=== PATIENT | female | born 1945 | race Caucasian/White ===

== ENCOUNTER 2018-07-01 17:09 | Inpatient (IN) ==
--- NOTE | 2018-07-01 17:14 | Emergency Department Note ---
Disposition Clinical Impression: Cerebrovascular accident Disposition: Admitted As Inpatient Condition: Undetermined General Adult HPI - General Stated complaint: CVA Time Seen by Provider: 07/01/18 17:13 - Related Data Home Medications Medication Instructions Recorded Confirmed Clopidogrel 75 mg PO DAILY 05/19/15 07/01/18 GlipiZIDE 10 mg PO BID 05/19/15 07/01/18 Metformin 500 mg PO BIDWM 05/19/15 07/01/18 Simvastatin 20 mg PO DAILY 05/19/15 07/01/18 ALPRAZolam [Xanax 0.5 MG Tablet] 0.5 mg PO TID PRN 07/01/18 07/01/18 Budesonide/Formoterol 160/4.5 2 puff IH BIDR 07/01/18 07/01/18 [Symbicort 160/4.5] Cetirizine HCl [All Day Allergy] 10 mg PO DAILY 07/01/18 07/01/18 Citalopram [CeleXA] 40 mg PO BID 07/01/18 07/01/18 Fluticasone Propionate Nasal 50 mcg NS DAILY 07/01/18 07/01/18 [Flonase] Gabapentin [Neurontin] 600 mg PO QID 07/01/18 07/01/18 Hyoscyamine SL [Levsin SL] 0.125 mg SL TID 07/01/18 07/01/18 L. Acidophilus/Pectin, Ch[place] 1 each PO DAILY 07/01/18 07/01/18 [Acidophilus Probiotic Capsule] Lansoprazole [Prevacid] 30 mg PO DAILY 07/01/18 07/01/18 Levothyroxine Sodium [Levoxyl] 25 mcg PO DAILY 07/01/18 07/01/18 Metoprolol Succinate [Kapspargo 50 mg PO DAILY 07/01/18 07/01/18 Sprinkle] Montelukast [Singulair] 10 mg PO HS 07/01/18 07/01/18 Oxycodone HCl/Acetaminophen 1 each PO Q4HR PRN 07/01/18 07/01/18 [Percocet 7.5-325 mg Tablet] Pantoprazole Sodium [Protonix] 40 mg PO DAILY 07/01/18 07/01/18 Paroxetine HCl [Paxil] 20 mg PO DAILY 07/01/18 07/01/18 Trazodone HCl 150 mg PO HS 07/01/18 07/01/18 Previous Rx's Medication Instructions Recorded Loratadine [Claritin] 10 mg PO DAILY #30 tablet 02/19/16 Allergies Allergy/AdvReac Type Severity Reaction Status Date / Time bupropion [From Wellbutrin] Allergy Dizziness Verified 07/01/18 18:16 hydrocodone Allergy Rash Verified 07/01/18 18:16 meperidine Allergy Rash Verified 07/01/18 18:16 morphine Allergy Abdominal Verified 05/19/15 18:37 Pain propoxyphene Allergy Hives Verified 05/19/15 18:37 [From Darvocet-N] Sulfa (Sulfonamide Allergy Hives Verified 05/19/15 18:37 Antibiotics) acetaminophen [From Vicodin] AdvReac Vomiting Verified 07/01/18 18:16 cephalexin AdvReac Gastrointestinal Verified 07/01/18 18:16 Upset Past Medical History - Past Medical History Medical history: Reports: non-contributory Surgical history: Reports: cholecystectomy, hysterectomy Psychiatric history: Reports: no psych history - Social History Smoking Status: Never smoker Smokeless Tobacco Status: No Alcohol use: Reports: none Drug use: Reports: none Course Vital Signs Temperature 98.2 F 07/01/18 17:15 Pulse Rate 97 07/01/18 17:15 Respiratory Rate 20 07/01/18 17:15 Blood Pressure 149/114 07/01/18 17:15 O2 Sat by Pulse Oximetry 97 07/01/18 17:15 Temperature 98.2 F 07/01/18 17:39 Pulse Rate 64 07/01/18 19:40 Respiratory Rate 18 07/01/18 19:40 Blood Pressure 162/67 07/01/18 19:40 O2 Sat by Pulse Oximetry 98 07/01/18 18:58 Oxygen Delivery Oxygen Delivery Room Air Medical Decision Making - Lab Data Result diagrams: 07/01/18 17:13 07/01/18 17:13 Lab Results 07/01/18 07/01/18 07/01/18 Range/Units 17:13 17:13 17:13 WBC 9.5 (4.3-11.1) K/mcL RBC 4.32 (3.82-4.97) M/mcL Hgb 12.5 (11.5-15.4) g/dL Hct 38.0 (35.3-44.9) % MCV 88.0 (83.0-100.0) fL MCH 28.9 (28.0-33.3) pg MCHC 32.9 (31.6-35.5) g/dL RDW 12.1 (11.5-14.5) % Plt Count 193 (140-400) K/mcL MPV 11.0 (9.4-12.4) fL PT 11.9 (9.4-12.1) Seconds INR 1.1 APTT 33.9 (26.0-36.0) Seconds Sodium 138 (136-145) mEq/L Potassium 3.7 (3.5-5.1) mEq/L Chloride 104 (98-107) mEq/L Carbon Dioxide 23 (23-29) mEq/L BUN 21 (8-23) mg/dL Creatinine 1.03 (0.60-1.20) mg/dL Est GFR ( Amer) > 60 (> 60) Est GFR (Non-Af Amer) 53 L (> 60) BUN/Creatinine Ratio 20 (6-26) Glucose 181 H (70-105) mg/dL Calculated Osmolality 294 (280-300) Calcium 10.6 H (8.6-10.3) mg/dL Troponin I < 0.03 (< 0.04) ng/mL Attestation Statement - Attestation Attestation: I examined this patient and my medical decision-making was reviewed with the Resident Physician. I agree with the documented findings, disposition and treatment plan as described except to the extent set forth below. [id number] time provided Patient arrives with facial droop. Symptoms started at noon which is 5 hours prior to arrival. On exam she has right-sided facial droop, inability to keep her right eyelid held tightly shut against resistance, and inability to further the right side of her forehead. I favor a seventh cranial nerve palsy over a central cause of her symptoms. Despite this a stroke alert was activated as the patient does have some subjective symptoms involving her left upper extremity Patient seen at 17:12 - 2 mins after ED registration
--- NOTE | 2018-07-01 17:18 | Emergency Department Note ---
Disposition Clinical Impression: Cerebrovascular accident Qualifiers: CVA mechanism: unspecified Qualified Code(s): I63.9 - Cerebral infarction, unspecified Disposition: Admitted As Inpatient Condition: Undetermined Referrals: Stanford Valero [Primary Care Provider] - Forms: ED Satisfaction Letter Time of Disposition: 18:52 Neuro HPI - General Chief Complaint: ED Neuro Symptoms/Deficit Stated Complaint: CVA Time Seen by Provider: 07/01/18 17:13 Source: patient Mode of arrival: private vehicle Limitations: no limitations Nursing Notes Reviewed: Yes Vital Signs Reviewed: Yes - History of Present Illness HPI Narrative: 72 year old female with history of TIA arrives with complaint of right facial droop, dyspnea and feeling ill. The patient states the facial droop started at noon, 5 hours prior to arrival. The patient states though however she is not feeling feeling well over the course of the past 8 hours. The patient arrives to the emergency department feeling very short of breath as well. The patient has obvious facial droop on the right which does include partial upper part of the face consistent with a cranial nerve VII palsy but the patient has deviation of the tongue to the left on evaluation as well as ataxia on physical exam and decreased sensation of upper extremities. Patient admits to previous histories of TIA is currently on Plavix for this. He states he is not taken her medicines for the past couple days. She denies any other traumatic injury any other complaints at this time. - Related Data Home Medications: Home Medications Medication Instructions Recorded Confirmed Clopidogrel 75 mg PO DAILY 05/19/15 07/01/18 GlipiZIDE 10 mg PO BID 05/19/15 07/01/18 Metformin 500 mg PO BIDWM 05/19/15 07/01/18 Simvastatin 20 mg PO DAILY 05/19/15 07/01/18 ALPRAZolam [Xanax 0.5 MG Tablet] 0.5 mg PO TID PRN 07/01/18 07/01/18 Citalopram [CeleXA] 40 mg PO BID 07/01/18 07/01/18 Gabapentin [Neurontin] 600 mg PO QID 07/01/18 07/01/18 Hyoscyamine SL [Levsin SL] 0.125 mg SL TID 07/01/18 07/01/18 L. Acidophilus/Pectin, Martin 1 each PO DAILY 07/01/18 07/01/18 [Acidophilus Probiotic Capsule] Oxycodone HCl/Acetaminophen 1 each PO Q4HR PRN 07/01/18 07/01/18 [Percocet 7.5-325 mg Tablet] Previous Rx's Medication Instructions Recorded Loratadine [Claritin] 10 mg PO DAILY #30 tablet 02/19/16 Allergies/Adverse Reactions: Allergies Allergy/AdvReac Type Severity Reaction Status Date / Time bupropion [From Wellbutrin] Allergy Dizziness Verified 07/01/18 18:16 hydrocodone Allergy Rash Verified 07/01/18 18:16 meperidine Allergy Rash Verified 07/01/18 18:16 morphine Allergy Abdominal Verified 05/19/15 18:37 Pain propoxyphene Allergy Hives Verified 05/19/15 18:37 [From Darvocet-N] Sulfa (Sulfonamide Allergy Hives Verified 05/19/15 18:37 Antibiotics) acetaminophen [From Vicodin] AdvReac Vomiting Verified 07/01/18 18:16 cephalexin AdvReac Gastrointestinal Verified 07/01/18 18:16 Upset All systems ED: reviewed and negative except as stated. Constitutional: Reports: weakness. Denies: fever, chills Eyes: Denies: eye discharge, vision change ENT ED: Denies: throat pain, dysphagia Cardiovascular: Denies: chest pain Respiratory: Reports: dyspnea. Denies: cough, sputum production Gastrointestinal: Denies: abdominal pain, nausea, vomiting Genitourinary: Denies: urgency, dysuria Musculoskeletal: Denies: back pain, neck pain Integumentary: Denies: rash Neurological: Reports: headache, weakness, numbness, paresthesias. Denies: confusion, vertigo Past Medical History - Past Medical History Attestation: Yes The following information was validated with the patient. Source: patient, old records reviewed Medical history: Reports: hyperlipidemia, hypertension, TIA Surgical history: Reports: cholecystectomy, hysterectomy Psychiatric history: Reports: no psych history - Social History Smoking Status: Never smoker Smokeless Tobacco Status: No Alcohol use: Reports: none Drug use: Reports: none Physical Exam - General Limitations: no limitations General appearance: alert, in no apparent distress - Head Head exam: atraumatic, normocephalic, normal inspection - Eye Eye exam: Present: PERRL - ENT ENT exam: mucous membranes moist - Neck Neck exam: Present: normal inspection, full ROM, trachea midline - Chest Chest inspection: Present: normal inspection, symmetric chest wall rise - Respiratory Respiratory exam: Present: normal lung sounds bilaterally - Cardiovascular Cardiovascular exam: Present: regular rate, normal rhythm, normal heart sounds - Abdominal Exam Abdominal exam: Present: soft, Non-Tender. Absent: tenderness, distention, guarding, rebound, rigidity - Extremities Exam Extremities exam: Present: normal inspection, full ROM. Absent: tenderness, pedal edema - Neurological Exam Neurological exam: Present: alert, oriented X3 - Expanded Neurological Exam Patient oriented to: Present: person, place, time Speech: Present: fluid speech Cranial nerves: EOM function (II, III, IV, ): Abnormal Right, facial sensation (V): Abnormal Right, facial palsy (VII): Abnormal Right Cerebellar function: finger to nose: Abnormal Left, Abnormal Right Cerebellar function: wide-based gait Motor strength - LUE: 4/5 Motor strength - RUE: 4/5 Motor strength - LLE: 4/5 Motor strength - RLE: 4/5 Sensory exam upper extremity: light touch: Abnormal Right Sensory exam lower extremity: light touch: Normal Coma Scale Eye Opening: Spontaneous Coma Scale Motor Response: Obeys Commands Coma Scale Verbal Response: Oriented Coma Scale Total: 15 - Skin Skin exam: Present: warm, dry, intact, normal color Course - Consultations Consultation #1: Spoke to Dr. Maxwell, who agreed that the patient does not meet any TPA criteria at this time as she is out of the window. He did not feel this was a large vessel disease, so he recommended admission here at [facility]. Time: 17:43 Vital Signs Temperature 98.2 F 07/01/18 17:15 Pulse Rate 97 07/01/18 17:15 Respiratory Rate 20 07/01/18 17:15 Blood Pressure 149/114 07/01/18 17:15 O2 Sat by Pulse Oximetry 97 07/01/18 17:15 Temperature 98.2 F 07/01/18 17:39 Pulse Rate 73 07/01/18 18:00 Respiratory Rate 20 07/01/18 18:00 Blood Pressure 138/67 07/01/18 18:00 O2 Sat by Pulse Oximetry 98 07/01/18 18:00 Oxygen Delivery Oxygen Delivery Room Air Neuro Symptoms/Deficit - MDM Narrative Medical decision making narrative: Patient's workup in the emergency department demonstrates findings concerning for CVA. Given the paralysis of the patient's right side of the face Felix's palsy is deftly consideration but given the other neurologic deficits the patient is experiencing combined with the patient's history of TIA combined with the lack of her taking Plavix of the past few days, a stroke alert was called. Case was discussed with [facility] neurology who recommended further workup including MRI. The patient will be admitted to the hospital for further workup and care here at [facility]. Patient was given aspirin. No further questions or concerns noted. Case was discussed with neurology, Dr. Angela , who agreed with recommendations plan of care. Accepted to the hospitalist service, Dr. Sauer. - Lab Data Lab results reviewed: Yes I reviewed the patient's lab results. Result diagrams: 07/01/18 17:13 07/01/18 17:13 Lab Results 07/01/18 07/01/18 07/01/18 Range/Units 17:13 17:13 17:13 WBC 9.5 (4.3-11.1) K/mcL RBC 4.32 (3.82-4.97) M/mcL Hgb 12.5 (11.5-15.4) g/dL Hct 38.0 (35.3-44.9) % MCV 88.0 (83.0-100.0) fL MCH 28.9 (28.0-33.3) pg MCHC 32.9 (31.6-35.5) g/dL RDW 12.1 (11.5-14.5) % Plt Count 193 (140-400) K/mcL MPV 11.0 (9.4-12.4) fL PT 11.9 (9.4-12.1) Seconds INR 1.1 APTT 33.9 (26.0-36.0) Seconds Sodium 138 (136-145) mEq/L Potassium 3.7 (3.5-5.1) mEq/L Chloride 104 (98-107) mEq/L Carbon Dioxide 23 (23-29) mEq/L BUN 21 (8-23) mg/dL Creatinine 1.03 (0.60-1.20) mg/dL Est GFR ( Amer) > 60 (> 60) Est GFR (Non-Af Amer) 53 L (> 60) BUN/Creatinine Ratio 20 (6-26) Glucose 181 H (70-105) mg/dL Calculated Osmolality 294 (280-300) Calcium 10.6 H (8.6-10.3) mg/dL Troponin I < 0.03 (< 0.04) ng/mL - Radiology Data Radiology results reviewed: Yes I reviewed the patient's radiology results. Chest X-Ray 07/01/18 17:13 IMPRESSION: No acute process. D/ / Dallin Heredia MD / Dallin Heredia MD Interpreting Provider: Dallin Heredia MD Head CT 07/01/18 17:13 IMPRESSION: No acute intracranial abnormality. D/ / Cameorn Randall MD / Cameron Randall MD Interpreting Provider: Cameron Randall MD Head CTA 07/01/18 17:43 IMPRESSION: No high-grade stenosis or focal occlusion involving the intracranial vasculature or cervical vasculature. No gross evidence of acute dissection. No sizable intracranial aneurysm. Please note the examination was somewhat limited due to motion. D/ / Ezequiel Briscoe MD / Ezequiel Briscoe MD Interpreting Provider: Ezequiel Briscoe MD Neck CTA 07/01/18 17:43 IMPRESSION: No high-grade stenosis or focal occlusion involving the intracranial vasculature or cervical vasculature. No gross evidence of acute dissection. No sizable intracranial aneurysm. Please note the examination was somewhat limited due to motion. D/ / Ezequiel Briscoe MD / Ezequiel Briscoe MD Interpreting Provider: Ezequiel Briscoe MD - EKG Data EKG attestation: Yes I reviewed and interpreted this EKG. EKG results narrative: Heart rate 85 beats for minute. Normal sinus rhythm. No ST elevation or ST depression noted. No acute changes noted. NIH Stroke Scale - Level of Consciousness LOC: Alert - LOC Questions LOC Questions: Answers both correctly - LOC Commands LOC Commands: Performs both correctly - Best Gaze Best Gaze: Normal - Visual Visual: No visual loss - Facial Palsy Facial Palsy: Complete absence of movement in upper and lower face - Motor Arms Motor Arm-Left: No drift for 10 seconds Motor Arm-Right: No drift for 10 seconds - Motor Legs Motor Leg-Left: No drift for 5 seconds Motor Leg-Right: No drift for 5 seconds - Limb Ataxia Limb Ataxia: Present in TWO limbs - Sensory Sensory: Mild to moderate loss, "not as sharp" - Best Language Best Language: No aphasia - Dysarthria Dysarthria: Mild, slurs some words - Extinction and Inattention Extinction and Inattention: Normal - NIHSS Total Score NIHSS Total Score: 7 TPA Checklist - LKW: 3-4.5 hrs Add. Warnings/Precautions Patient/family understanding: The patient/family members have been counseled and understood the risk, benefit , and alternatives of treatment.
[2018-07-01 17:31] LABS: Hemoglobin 12.5 g/dL (11.5-15.4); Mean Corpuscular HGB Conc 32.9 g/dL (31.6-35.5); Mean Corpuscular Hemoglobin 28.9 pg (28.0-33.3); Platelet Count 193 K/mcL (140-400); Red Blood Count 4.32 M/mcL (3.82-4.97); Red Cell Distribution Width 12.1 % (11.5-14.5)
[2018-07-01 17:37] LABS: INR 1.1; Prothrombin Time 11.9 Seconds (9.4-12.1)
[2018-07-01 17:39] LABS: Activated Partial Thrombo Time 33.9 Seconds (26.0-36.0)
[2018-07-01] MEDS ORDERED: Isovue-370 500 ML INFUS..BTL IV ONE (17:43)
[2018-07-01 17:54] LABS: BUN/Creatinine Ratio 20 (6-26); Blood Urea Nitrogen 21 mg/dL (8-23); Calcium 10.6 mg/dL (8.6-10.3); Carbon Dioxide 23 mEq/L (23-29); Chloride 104 mEq/L (98-107); Glucose 181 mg/dL (70-105); Osmolality,Calculated 294 (280-300); Potassium 3.7 mEq/L (3.5-5.1); Sodium 138 mEq/L (136-145); eGFR For Non-African Americans 53 (> 60)
[2018-07-01 17:55] LABS: Troponin I < 0.03 ng/mL (< 0.04)
[2018-07-01] MEDS ORDERED: 0.9 % Sodium Chloride 1,000 ML IVC ONE (17:58)
[2018-07-01] MEDS ORDERED: Aspirin 325 MG TABLET PO ONE (17:58)
[2018-07-01] MEDS ORDERED: Metoclopramide 10 MG/2 ML VIAL IVP ONE (18:48)
[2018-07-01] MEDS ORDERED: Naloxone 0.4 MG/ML INJ IVP PRN (19:23)
--- NOTE | 2018-07-01 20:13 | Internal Med History&Physical ---
Date of Encounter: 07/02/18 Time of Encounter: 20:13 Internal Medicine - H&P: HPI Chief complaint: Facia droop History of present illness: Ms. Agrawal is a 72 year old female with a past medical history of TIA, Diabetes , HTN, HLD, asthma and COPD who presents with a chief complaint of right facial droop, dyspnea and malaise. Patient reports that symptoms started around noon, 5 hours prior to arrival. However patient states she has not been feeling well for the past 8 hours. She reports that her brother came to see her earlier today around 1 PM and noticed that her right side of her face was drooping. Up until that point patient did not note it but was having difficulty drinking fluids the prior day. On arrival patient noted to be short of breath with notable right facial droop and tongue deviation to the left. Patient was also noted to be ataxic on ambulation with decreased sensation of the upper extremities. Patient currently on Plavix for previous history of TIA. However , patient believes that she may not have been taking it for an entire month but is uncertain. Additionally, patient endorses some left-sided chest pain which she describes as sharp, nonpleuritic radiating to her left arm. Initial EKG and troponins were unremarkable. Stroke alert was called and the case was discussed with Dr. Angela with neurology at [facility] over recommended further workup including MRI. Patient received loading dose of aspirin. CT scan of the head showed no evidence of high-grade stenosis. EKG unremarkable. Past Med Surg Social Fam HX - Past Medical History Medical history: non-contributory Additional medical history: WILLIE, dysphagia, chronic insomnia, neuropathy Psychiatric history: no psych history - Past Surgical History Surgical History: cholecystectomy, hysterectomy - Social History Smoking Status: Never smoker Smokeless Tobacco Status: No Alcohol use: none Drug use: none - Family History Father Hx Family Cancer: Yes (colon) Mother Hx Family Neuromuscular Disorders: Yes (parkinsons, dementia, TIA) Internal Medicine - H&P: Meds Loratadine [Claritin] 10 mg PO DAILY #30 tablet 02/19/16 [Rx] ALPRAZolam [Xanax 0.5 MG Tablet] 0.5 mg PO TID PRN 07/01/18 [History] Budesonide/Formoterol 160/4.5 [Symbicort 160/4.5] 2 puff IH BIDR 07/01/18 [ History] Cetirizine HCl [All Day Allergy] 10 mg PO DAILY 07/01/18 [History] Citalopram [CeleXA] 20 mg PO BID 07/01/18 [History] Fluticasone Propionate Nasal [Flonase] 50 mcg NS DAILY 07/01/18 [History] Gabapentin [Neurontin] 600 mg PO QID 07/01/18 [History] Hyoscyamine SL [Levsin SL] 0.125 mg SL TID 07/01/18 [History] L. Acidophilus/Pectin, Clay [Acidophilus Probiotic Capsule] 1 each PO DAILY [History] Lansoprazole [Prevacid] 30 mg PO DAILY 07/01/18 [History] Levothyroxine Sodium [Levoxyl] 25 mcg PO DAILY 07/01/18 [History] Montelukast [Singulair] 10 mg PO HS 07/01/18 [History] Oxycodone HCl/Acetaminophen [Percocet 7.5-325 mg Tablet] 1 each PO BID PRN 07/01 [History] Pantoprazole Sodium [Protonix] 40 mg PO DAILY 07/01/18 [History] Paroxetine HCl [Paxil] 20 mg PO DAILY 07/01/18 [History] Trazodone HCl 150 mg PO HS 07/01/18 [History] Clopidogrel [Plavix] 75 mg PO DAILY 07/02/18 [History] Metoprolol XL (24 HR) Succ [Toprol XL] 50 mg PO DAILY 07/02/18 [History] Simvastatin [Zocor] 20 mg PO HS 07/02/18 [History] glipiZIDE [Glipizide] 10 mg PO BID 07/02/18 [History] metFORMIN [Glucophage] 500 mg PO BIDWM 07/02/18 [History] 3 Allergy/AdvReac Type Severity Reaction Status Date / Time bupropion [From Wellbutrin] Allergy Dizziness Verified 07/01/18 18:16 hydrocodone Allergy Rash Verified 07/01/18 18:16 meperidine Allergy Rash Verified 07/01/18 18:16 morphine Allergy Abdominal Verified 05/19/15 18:37 Pain propoxyphene Allergy Hives Verified 05/19/15 18:37 [From Darvocet-N] Sulfa (Sulfonamide Allergy Hives Verified 05/19/15 18:37 Antibiotics) acetaminophen [From Vicodin] AdvReac Vomiting Verified 07/01/18 18:16 cephalexin AdvReac Gastrointestinal Verified 07/01/18 18:16 Upset All Systems PM: A 10-system review of systems was performed and is negative for pertinent findings except as documented above in the HPI. - Constitutional Constitutional: no chills, no fever(s), no night sweats - EENT Eyes: no change in vision, no discharge, no pain, no photophobia Ears: no ear discharge, no ear pain, no tinnitus Nose, mouth and throat: no dysphagia, no nasal discharge, no neck pain, no sore throat - Cardiovascular Cardiovascular ROS IM: no chest pain, no diaphoresis, no dyspnea, no lightheadedness, no palpitations, no syncope - Respiratory Respiratory: no cough, no dyspnea, no wheezing, no excessive phlegm production - Gastrointestinal Gastrointestinal: no abdominal pain, no diarrhea, no hematemesis, no hematochezia, no melena, no nausea, no vomiting - Genitourinary Genitourinary: no change in urinary stream, no dysuria, no flank pain, no hematuria - Musculoskeletal Musculoskeletal ROS IM: no numbness, no tingling - Integumentary Integumentary IM: no rash, no unusual bruising - Neurological Neurological ROS: no confusion, no convulsions, no focal weakness, no numbness, no tingling, no tremor(s) - Hematologic/Lymphatic Hematologic/Lymphatic: no easy bruising - Constitutional Vitals: Temp Pulse Resp BP Pulse Ox 98.2 F 64 18 162/67 98 07/01/18 17:39 07/01/18 19:40 07/01/18 19:40 07/01/18 19:40 07/01/18 18:58 Exam: General: Alert and oriented 3 lying in bed in no acute distress Skin:Normal color, no rash, no lesions. HEENT:EOM, pupils equal, round and reactive. Cardiovascular:Normal S1 & S2, no rubs, murmurs or gallops. No JVD. Pulse regular. Lungs:Normal breath sounds, no wheezes or crackles. Abdomen:Soft, non-tender, no rigidity. Extremities:No deformity, no edema or tenderness, no joint swelling or clubbing. Neurological:Normal cognition; right-sided facial droop and right-sided weakness noted; cranial nerves II through XII intact except for tongue deviation to the left; upper and lower shimmery sensation intact; no pronator drift. Upper and lower extremity muscle strength 5 out of 5 bilaterally. No dysmetria. Pulses:Carotid and radial pulses normal +2. Rest of the physical exam is non contributory Internal Med - H&P Results - Labs CBC & Chem 7: 07/01/18 17:13 07/02/18 05:23 - Assessment and plan (1) Cerebrovascular accident Current Visit: Yes Status: Deleted Assessment and plan: 72 year-old female with a past medical history of hypertension, hyperlipidemia, diabetes and history of TIA on Plavix but has been off her antiplatelet for possibly one month now presents with right-sided facial droop concerning for CVA. Stroke alert, called. Patient received loading dose of aspirin. CT imaging of the head and neck unremarkable. EKG within normal limits. Neuro checks Dysphasia screen Allow for permissive hypertension Obtain echo and carotid duplex in the morning MRI Neurology consult Qualifiers: CVA mechanism: unspecified Qualified Code(s): I63.9 - Cerebral infarction, unspecified (2) Chest pain Current Visit: Yes Status: Acute Assessment and plan: Atypical chest pain described as left-sided, sharp and radiating to the left arm. Initial EKG and troponins were unremarkable. Rule out acute coronary syndrome. Continue telemetry Trend troponin echocardiogram Qualifiers: Ischemic chest pain type: unspecified angina pectoris type Qualified Code(s ): I25.9 - Chronic ischemic heart disease, unspecified (3) Asthma Current Visit: Yes Status: Acute Assessment and plan: History of asthma. No evidence of wheezing on lung examination. Does not appear in acute exacerbation. We will continue home inhalers. Qualifiers: Asthma complication type: unspecified Qualified Code(s): J45.909 - Unspecified asthma, uncomplicated (4) COPD (chronic obstructive pulmonary disease) Current Visit: Yes Status: Acute Assessment and plan: Patient reports history of COPD and secondary to secondhand smoke. Not in acute exacerbation. Continue home inhalers. Qualifiers: Emphysema type: unspecified Qualified Code(s): J43.9 - Emphysema, unspecified (5) Hypertension Current Visit: Yes Status: Acute Assessment and plan: Allow for permissive hypertension. 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
[2018-07-01] MEDS ORDERED: Dextrose Gel 15 GM/37.5 ML TUBE PO PRN ×2 (20:46)
[2018-07-01] MEDS ORDERED: *HR* Dextrose 50 % in Water (Syg) 50 ML SYRINGE IVP PRN (20:46)
[2018-07-01] MEDS ORDERED: D5% in Water 1,000 ML IVC PRN (20:46)
[2018-07-01] MEDS: Insulin LISPRO 300 UNITS/3 ML VIAL SQ SCH (20:53)
[2018-07-01] MEDS: Budesonide/Formoterol 160/4.5 1 PUFF INH IH SCH (21:41)
[2018-07-01 22:20] LABS: Bilirubin,Urine Negative (Negative); Blood,Urine Trace (Negative); Clarity,Urine Clear (Clear); Color,Urine Yellow (Yellow); Glucose,Urine (UA) Normal (Normal); Ketones,Urine Negative (Negative); Leukocyte Esterase,Urine Small (Negative); Nitrite,Urine Negative (Negative); PH,Urine 5.5 pH Units (5.0-8.0); Protein,Urine Negative (Neg-Trace); Specific Gravity,Urine > 1.030 (1.010-1.025); Urobilinogen,Urine Normal (Normal)
[2018-07-01 22:35] LABS: Transitional Epi Cells,Urine Few per hpf (None-Few)
[2018-07-01 22:36] LABS: Renal Epithelial Cells,Urine Few per hpf (None-Few); Squamous Epithelial Cell,Urine Few per lpf (None-Few)
[2018-07-01 22:37] LABS: Bacteria,Urine Few per hpf (None-Few); RBC,Urine 0-3 per hpf (0-3)
[2018-07-01] MEDS: *HR* Heparin 5,000 UNIT/ML VIAL SQ SCH (22:43)
[2018-07-01] MEDS: Acetaminophen 325 MG TABLET PO PRN (23:30)
[2018-07-02] MEDS: *HR* Heparin 5,000 UNIT/ML VIAL SQ SCH ×3 (05:52→22:32)
[2018-07-02] MEDS: Levothyroxine 25 MCG TABLET PO SCH (05:53)
[2018-07-02 06:04] LABS: Prothrombin Time 11.4 Seconds (9.4-12.1)
[2018-07-02 06:20] LABS: Alanine Aminotransferase 16 Units/L (7-52); Albumin 3.8 g/dL (3.5-5.7); Albumin/Globulin Ratio 1.5 (1.1-2.2); Alkaline Phosphatase 62 Units/L (34-104); Aspartate Amino Transferase 18 Units/L (13-39); BUN/Creatinine Ratio 18 (6-26); Bilirubin,Total 0.3 mg/dL (0.3-1.0); Blood Urea Nitrogen 16 mg/dL (8-23); Calcium 9.2 mg/dL (8.6-10.3); Carbon Dioxide 25 mEq/L (23-29); Chloride 108 mEq/L (98-107); Chol/HDL Ratio 3.3 (0-4.9); Cholesterol 125 mg/dL (< 200); Globulin 2.5 g/dL (2.4-3.5); Glucose 110 mg/dL (70-105); HDL Cholesterol 38 mg/dL (40-59); LDL Cholesterol,Calculated 41 mg/dL (0-99); LDL Cholesterol,Direct 61 mg/dL (75-193); Osmolality,Calculated 292 (280-300); Potassium 3.8 mEq/L (3.5-5.1); Sodium 140 mEq/L (136-145); Total Protein 6.3 g/dL (6.4-8.9); Triglycerides 232 mg/dL (< 150); Troponin I 0.03 ng/mL (< 0.04); eGFR For Non-African Americans > 60 (> 60)
[2018-07-02] MEDS: Insulin LISPRO 300 UNITS/3 ML VIAL SQ SCH ×4 (07:48→22:33)
[2018-07-02] MEDS: Acetaminophen 325 MG TABLET PO PRN (08:04)
[2018-07-02 08:18] LABS: Estimated Average Glucose 137 mg/dl; Hemoglobin A1C 6.4 %
--- NOTE | 2018-07-02 08:54 | Electrocardiograph Report ---
[place] [id number] Test Date: 2018-07-01 Pat Name: Syeda Agrawal Department: EXAMC5 Room: 2NE24 Gender: F Gas Plant Operator: : [id number] Requested By: Alessio Morgan Order Number: [id number] Reading MD: Nicki Moss Measurements Intervals [place] Rate: 85 P: 59 [place]: 151 QRS: -21 QRSD: 93 T: 65 QT: 374 QTc: 445 Interpretive Statements Sinus rhythm Borderline left axis deviation Abnormal R-wave progression, early transition Electronically Signed On 07-02-2018 8:53:00 EDT by Nicki Moss
[2018-07-02] MEDS ORDERED: Metoprolol XL (24 HR) Succ 50 MG TAB.ER.24H PO SCH (09:00)
[2018-07-02] MEDS: Budesonide/Formoterol 160/4.5 1 PUFF INH IH SCH ×2 (10:47→19:55)
--- NOTE | 2018-07-02 12:41 | Internal Med Progress Note ---
Hospitalist Progress Note - Encounter Date of Encounter: 07/02/18 Time of Encounter: 13:51 - Subjective Interval History: Patient is a 72 year old female with history of TIA, diabetes, and hypertension who came in for right facial droop. This also occurred with some shortness of breath and chest pain. She states chest pain is tenderness but shortness of breath can be while deep inspiration. She denied both while at rest but during my exam and palpating chest, she did feel some tenderness with this. She denies fevers/chills, n/v, palpitations, diaphoresis. She states she had some odd sensation in her hand that is resolved. - Exam Vitals: Temp Pulse Resp BP Pulse Ox 97.5 F L 77 15 149/96 96 07/02/18 12:00 07/02/18 12:00 07/02/18 12:00 07/02/18 12:00 07/02/18 12:00 Exam: General: Alert and oriented 3, no acute distress Skin:Normal color, warm, dry, no rash/lesions HEENT:EOM, pupils equal, round and reactive. Cardiovascular:Normal S1 & S2, no rubs, murmurs or gallops. No JVD. Pulse regular. Lungs:Normal breath sounds, no wheezes or crackles. Abdomen:Soft, non-tender, no rigidity. Extremities: No edema Neurological:Normal cognition; + right sided facial droop; cranial nerves II through XII intact except for tongue deviation to the left; upper and lower sensation intact; no pronator drift. Upper and lower extremity muscle strength 5 out of 5 bilaterally. No dysmetria. Pulses:Carotid and radial pulses normal +2. Rest of the physical exam is non contributory - Assessment and Plan (1) Facial droop Current Visit: Yes Status: Acute Assessment and Plan: 72 year-old female with a past medical history of hypertension, hyperlipidemia, diabetes and history of TIA on Plavix but has been off her antiplatelet for possibly one month now presents with right-sided facial droop concerning for CVA. Stroke alert, called. Patient received loading dose of aspirin. CT imaging of the head and neck unremarkable. EKG within normal limits. Neuro checks Dysphasia screen Allow for permissive hypertension Obtain echo and carotid duplex results pending MRI Neurology consult I discussed case with Dr. Mendoza from Neurology. MRI pending. There is a chance that this could be from Felix's palsy vs CVA. 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 If MRI is positive for CVA, then will DC the Prednisone and antiviral. (2) Chest pain Current Visit: Yes Status: Acute Assessment and Plan: Atypical chest pain described as left-sided, sharp and radiating to the left arm. Initial EKG and troponins were unremarkable. Rule out acute coronary syndrome. Continue telemetry Trend troponin - did go from negative, borderline elevated to 0.04, now back to negative. - Tenderness to palpation may suggest musculoskeletal etiology. - echocardiogram pending - Since she did have some shortness of breath with this, will obtain D-dimer to rule PE. (3) Asthma Current Visit: Yes Status: Acute Assessment and Plan: History of asthma. No evidence of wheezing on lung examination. Does not appear in acute exacerbation. We will continue home inhalers. (4) COPD (chronic obstructive pulmonary disease) Current Visit: Yes Status: Acute Assessment and Plan: Patient reports history of COPD and secondary to secondhand smoke. Not in acute exacerbation. Continue home inhalers. (5) Hypertension Current Visit: Yes Status: Acute Assessment and Plan: Allow for permissive hypertension. (6) Hyperlipidemia Current Visit: Yes Status: Acute (7) Diabetes type 2, controlled Current Visit: Yes Status: Acute - Time Spent with Patient Total time spent is greater than 50% in coordination of care (as documented) at patient's floor/unit and/or counseling patient: Internal Medicine: Result - Labs CBC & Chem 7: 07/01/18 17:13 07/02/18 05:23 Labs: BMP 07/02/18 05:23 Sodium 140 Potassium 3.8 Chloride 108 H Carbon Dioxide 25 BUN 16 Creatinine 0.91 Glucose 110 H Calcium 9.2 Cardiac Enzymes 07/01/18 07/02/18 07/02/18 Range/Units 23:04 05:23 05:23 Troponin I 0.04 H* 0.03 0.03 (< 0.04) ng/mL Liver Function 07/02/18 Range/Units 05:23 Total Bilirubin 0.3 (0.3-1.0) mg/dL AST 18 (13-39) Units/L ALT 16 (7-52) Units/L Alkaline Phosphatase 62 (34-104) Units/L Albumin 3.8 (3.5-5.7) g/dL Urine 07/01/18 Range/Units 20:30 Urine Color Yellow (Yellow) Urine Clarity Clear (Clear) Urine pH 5.5 (5.0-8.0) pH Units Ur Specific [place] > 1.030 H (1.010-1.025) Urine Protein Negative (Neg-Trace) mg/dL Urine Glucose (UA) Normal (Normal) mg/dL - ABG Interpretation ABG results: PT/INR, D-dimer PT 11.4 Seconds (9.4-12.1) 07/02/18 05:23 Consult Discharge Plan - Plan Referrals: Stanford Valero [Primary Care Provider] - (6) Hyperlipidemia Qualifiers: Hyperlipidemia type: unspecified Qualified Code(s): E78.5 - Hyperlipidemia, unspecified (7) Diabetes type 2, controlled Qualifiers: Diabetes mellitus halfway 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
--- NOTE | 2018-07-02 13:57 | Neurology - Consult Note ---
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 Will start her on steroid and antiviral therapy since these are only effective during acute phase of Felix's palsy. If MRI of brain returns positive for acute infarct that can explain her neurological deficits then steroid and antiviral therapies can then be D/Patrick. Continue Plavis 75mg daily. If MRI of brain shows acute stroke then Aspirin can be added, if not then will keep on Plavix no changes. Please continue medical and supportive care History of Present Illness Chief complaint: right facial paralysis HPI: Ms. Agrawal is a 72 year old female with PMH significant for DM, COPD, chronic pain, HTN, hyperlipidemia who developed acute onset of right facial paralysis and not feeling well. Symptoms started yesterday at noon but she was not feeling well few hours prior to the noticeable facial droop. In the ER she was noticed to have right facial paralysis resembling Felix's palsy but she was also noticed to have tongue deviation to the left side and some balance difficulty. She has no bilateral ear pain but this has been chronic in nature. Speech appear fluent and language content is normal. CT of head showed no acute intracranial abnormality. CTA of head and neck were unremarkable as well. At the time of this interview, she still has quite significant right facial paralysis but no limb weakness. Concerns for Felix's palsy. MRI of brain is pending Past Med Surg Social Fam HX - Past Medical History Medical history: non-contributory Additional medical history: WILLIE, dysphagia, chronic insomnia, neuropathy Psychiatric history: no psych history - Past Surgical History Surgical History: cholecystectomy, hysterectomy - Social History Smoking Status: Never smoker Smokeless Tobacco Status: No Alcohol use: none Drug use: none - Family History Father Hx Family Cancer: Yes (colon) Mother Hx Family Neuromuscular Disorders: Yes (parkinsons, dementia, TIA) Medications and Allergies Loratadine [Claritin] 10 mg PO DAILY #30 tablet 02/19/16 [Rx] ALPRAZolam [Xanax 0.5 MG Tablet] 0.5 mg PO TID PRN 07/01/18 [History] Budesonide/Formoterol 160/4.5 [Symbicort 160/4.5] 2 puff IH BIDR 07/01/18 [ History] Cetirizine HCl [All Day Allergy] 10 mg PO DAILY 07/01/18 [History] Citalopram [CeleXA] 20 mg PO BID 07/01/18 [History] Fluticasone Propionate Nasal [Flonase] 50 mcg NS DAILY 07/01/18 [History] Gabapentin [Neurontin] 600 mg PO QID 07/01/18 [History] Hyoscyamine SL [Levsin SL] 0.125 mg SL TID 07/01/18 [History] L. Acidophilus/Pectin, [place] [Acidophilus Probiotic Capsule] 1 each PO DAILY [History] Lansoprazole [Prevacid] 30 mg PO DAILY 07/01/18 [History] Levothyroxine Sodium [Levoxyl] 25 mcg PO DAILY 07/01/18 [History] Montelukast [Singulair] 10 mg PO HS 07/01/18 [History] Oxycodone HCl/Acetaminophen [Percocet 7.5-325 mg Tablet] 1 each PO BID PRN 07/01 [History] Pantoprazole Sodium [Protonix] 40 mg PO DAILY 07/01/18 [History] Paroxetine HCl [Paxil] 20 mg PO DAILY 07/01/18 [History] Trazodone HCl 150 mg PO HS 07/01/18 [History] Clopidogrel [Plavix] 75 mg PO DAILY 07/02/18 [History] Metoprolol XL (24 HR) Succ [Toprol XL] 50 mg PO DAILY 07/02/18 [History] Simvastatin [Zocor] 20 mg PO HS 07/02/18 [History] glipiZIDE [Glipizide] 10 mg PO BID 07/02/18 [History] metFORMIN [Glucophage] 500 mg PO BIDWM 07/02/18 [History] 3 Allergy/AdvReac Type Severity Reaction Status Date / Time bupropion [From Wellbutrin] Allergy Dizziness Verified 07/01/18 18:16 hydrocodone Allergy Rash Verified 07/01/18 18:16 meperidine Allergy Rash Verified 07/01/18 18:16 morphine Allergy Abdominal Verified 05/19/15 18:37 Pain propoxyphene Allergy Hives Verified 05/19/15 18:37 [From Darvocet-N] Sulfa (Sulfonamide Allergy Hives Verified 05/19/15 18:37 Antibiotics) acetaminophen [From Vicodin] AdvReac Vomiting Verified 07/01/18 18:16 cephalexin AdvReac Gastrointestinal Verified 07/01/18 18:16 Upset All Systems: The remainder of the systems were reviewed and are negative Physical Examination - Vital Signs Vital Signs: Initial Vital Signs Temp Pulse Resp BP Pulse Ox 98.2 F 97 20 149/114 97 07/01/18 17:15 07/01/18 17:15 07/01/18 17:15 07/01/18 17:15 07/01/18 17:15 - Constitutional General appearance: comfortable - Neurologic Sensorimotor examination: intact Detailed motor examination: full strength in all major muscle groups Motor examination - right side: 5/5: deltoids, biceps, triceps, wrist flexion, wrist extension, shochet, hip flexors, tibialis Anterior, quadriceps, toe extension (EHL), plantarflexion Motor examination - left side: 5/5: deltoids, biceps, triceps, wrist flexion, wrist extension, hip flexors, shochet, quadriceps, tibialis Anterior, toe extension (EHL), plantarflexion Detailed sensory examination: intact Posture: other (None) Reflexes: Biceps: 1+, Triceps: 1+, Brachioradialis: 1+, Patella: 1+, Achilles: 1 + Mental Status Examination: awake, alert, oriented to person, oriented to place, oriented to time, follows commands appropriately, answers questions appropriately, no agnosia, no aphasia, no aproxia Cranial nerve examination: PERRL, EOMI, visual beckwith intact, corneal reflexes brisk symmetrically, sensory to face intact, mastication intact, no facial asymmetry is present (right facial paralysis noted, positive [place] phenomenon), no dysarthria (Slight dysarthria noted. Language content is intact), hearing is intact symmetrically, soft palate elevates bilaterally upon phonation, gag reflex intact, flexes SCM and trapezius muscles symmetrically with full power, tongue protrudes midline (To the left side but this could be masked by right facial droop), no atrophy or facial fasiculations present Results - Laboratory Findings CBC and BMP: 07/01/18 17:13 07/02/18 05:23 Abnormal lab findings: Abnormal lab results Chloride 108 mEq/L (98-107) H 07/02/18 05:23 Glucose 110 mg/dL (70-105) H 07/02/18 05:23 Hemoglobin A1c 6.4 % (-5.6) H 07/02/18 05:23 Serum Total Protein 6.3 g/dL (6.4-8.9) L 07/02/18 05:23 Triglycerides 232 mg/dL (< 150) H 07/02/18 05:23 LDL Cholesterol [place] 61 mg/dL (75-193) L 07/02/18 05:23 VLDL Cholesterol, Calc 46 mg/dL (< 31) H 07/02/18 05:23 HDL Cholesterol 38 mg/dL (40-59) L 07/02/18 05:23 Ur Specific [place] > 1.030 (1.010-1.025) H 07/01/18 20:30 Urine Blood Trace (Negative) H 07/01/18 20:30 Ur Leukocyte Esterase Small (Negative) H 07/01/18 20:30 Urine Microscopic WBC 3-5 per hpf (0-3) H 07/01/18 20:30 - Diagnostic Findings Additional findings: CTA OF THE HEAD WITHOUT AND WITH CONTRAST; CTA OF THE NECK 07/01/2018 6:32 pm: TECHNIQUE: CTA of the head/brain was performed without and with the administration of intravenous contrast. Multiplanar reformatted images are provided for review. MIP images are provided for review. Dose modulation, iterative reconstruction, and/or weight based adjustment of the mA/kV was utilized to reduce the radiation dose to as low as reasonably achievable.; CTA of the neck was performed with the administration of intravenous contrast. Multiplanar reformatted images are provided for review. MIP images are provided for review. Stenosis of the internal carotid arteries measured using NASCET criteria. Dose modulation, iterative reconstruction, and/or weight based adjustment of the mA/kV was utilized to reduce the radiation dose to as low as reasonably achievable. COMPARISON: MRI head and neck on 05/11/2013. HISTORY: ORDERING SYSTEM PROVIDED HISTORY: facial droop 75 ml of isovue FINDINGS: CTA NECK: AORTIC ARCH/ARCH VESSELS: No significant stenosis is seen of the innominate artery or subclavian arteries. CAROTID ARTERIES: The common carotid arteries are normal in appearance without evidence of a flow limiting stenosis. Evaluation of the bifurcation is somewhat limited due to motion. There is atherosclerotic disease present within the carotid bifurcation. No flow-limiting stenosis is suspected. No gross evidence of dissection. VERTEBRAL ARTERIES: The vertebral arteries both arise from the subclavian arteries and are normal in caliber without evidence of flow limiting stenosis or dissection. SOFT TISSUES: The visualized upper lungs are clear. No significant cervical lymphadenopathy is identified. There are subcentimeter cervical lymph nodes bilaterally, which do not meet CT size criteria for individual lymph node enlargement. The nasopharynx and oral cavity are grossly unremarkable. Oropharynx is limited in evaluation due to motion. Hypopharynx and laryngeal structures are unremarkable. BONES: Multilevel degenerative changes of the cervical spine. No gross evidence of acute osseous abnormalities. CTA HEAD: ANTERIOR CIRCULATION: Atherosclerotic calcifications are present within the intracranial internal carotid arteries. No flow-limiting stenosis. The anterior cerebral and middle cerebral arteries demonstrate no focal stenosis. POSTERIOR CIRCULATION: There is a origin of the left posterior cerebral artery. There is a probable infundibulum at the origin of the left posterior communicating artery. Otherwise, the posterior cerebral arteries demonstrate no focal stenosis. The vertebral and basilar arteries appear unremarkable. CT/CT angio head IMPRESSION: No high-grade stenosis or focal occlusion involving the intracranial vasculature or cervical vasculature. No gross evidence of acute dissection. No sizable intracranial aneurysm. Please note the examination was somewhat limited due to motion. D/ / 07/01/2018 18:52:05 Ezequiel Briscoe MD / barrie Interpreting Provider: Ezequiel Briscoe MD CT OF THE HEAD WITHOUT CONTRAST - STROKE ALERT 07/01/2018 5:26 pm TECHNIQUE: CT of the head was performed without the administration of intravenous contrast. Dose modulation, iterative reconstruction, and/or weight based adjustment of the mA/kV was utilized to reduce the radiation dose to as low as reasonably achievable. COMPARISON: CT head May 10, 2013 HISTORY: ORDERING SYSTEM PROVIDED HISTORY: stroke alert Facial droop FINDINGS: BRAIN/VENTRICLES: There is no acute intracranial hemorrhage, mass effect or midline shift. No abnormal extra-axial fluid collection. The long-white differentiation is maintained without evidence of an acute infarct. There is no evidence of hydrocephalus. Atherosclerotic changes of the intracranial vasculature. There is mild age appropriate global cerebral atrophy. ORBITS: The visualized portion of the orbits demonstrate no acute abnormality. SINUSES: The visualized paranasal sinuses and mastoid air cells demonstrate no acute abnormality. SOFT TISSUES/SKULL: No acute abnormality of the visualized skull or soft tissues. IMPRESSION: No acute intracranial abnormality. D/ / Cameron Randall MD / Cameron Randall MD Interpreting Provider: Cameron Randall MD NDUM: Results were called by Dr. Cameron Randall MD to Alessio Morgan on 07/01/2018 at 17:34. D/ / Cameron Randall MD / Cameron Randall MD Interpreting Provider: Cameron Randall MD R #: [id number] CT/CT stroke alert head wo con IMPRESSION: No acute intracranial abnormality. D/ / Cameron Randall MD / Cameron Randall MD Interpreting Provider: Cameron Randall MD Consult Discharge Plan - Plan Referrals: Stanford Valero [Primary Care Provider] -
[2018-07-02] MEDS ORDERED: Methyl Salicylate/Menthol 28 GM TUBE TP PRN (14:05)
[2018-07-02] MEDS: predniSONE 20 MG TABLET PO SCH (16:41)
[2018-07-02] MEDS: valACYclovir 500 MG TABLET PO SCH ×2 (16:42→22:32)
[2018-07-02] MEDS: *HR* OxyCODONE/APAP 7.5/325 TABLET PO PRN (16:47)
[2018-07-03] MEDS: *HR* OxyCODONE/APAP 7.5/325 TABLET PO PRN ×2 (03:55→15:10)
[2018-07-03] MEDS: *HR* Heparin 5,000 UNIT/ML VIAL SQ SCH ×2 (05:27→15:10)
[2018-07-03] MEDS: Levothyroxine 25 MCG TABLET PO SCH (05:27)
[2018-07-03 07:44] VITALS: BP 170/88
[2018-07-03] MEDS: Budesonide/Formoterol 160/4.5 1 PUFF INH IH SCH (07:46)
[2018-07-03] MEDS: Insulin LISPRO 300 UNITS/3 ML VIAL SQ SCH ×2 (08:00→12:10)
[2018-07-03] MEDS: predniSONE 20 MG TABLET PO SCH (08:00)
--- NOTE | 2018-07-03 08:01 | Internal Med Progress Note ---
Hospitalist Progress Note - Encounter Date of Encounter: 07/03/18 - Subjective Interval History: Patient is a 72 year old female with history of TIA, diabetes, and hypertension who came in for right facial droop. This also occurred with some shortness of breath and chest pain. She states chest pain is tenderness but shortness of breath can be while deep inspiration. She denied both while at rest but during my exam and palpating chest, she did feel some tenderness with this. She denies fevers/chills, n/v, palpitations, diaphoresis. She states she had some odd sensation in her hand that is resolved. - Exam Vitals: Temp Pulse Resp BP Pulse Ox 98.3 F 64 16 170/88 96 07/03/18 07:39 07/03/18 07:39 07/03/18 07:39 07/03/18 07:39 07/03/18 07:39 - Assessment and Plan (1) Cerebrovascular accident Current Visit: Yes Status: Deleted (2) Chest pain Current Visit: Yes Status: Acute (3) Asthma Current Visit: Yes Status: Acute (4) COPD (chronic obstructive pulmonary disease) Current Visit: Yes Status: Acute (5) Hypertension Current Visit: Yes Status: Acute (6) Hyperlipidemia Current Visit: Yes Status: Acute (7) Diabetes type 2, controlled Current Visit: Yes Status: Acute - Time Spent with Patient Total time spent is greater than 50% in coordination of care (as documented) at patient's floor/unit and/or counseling patient: Internal Medicine: Result - Labs CBC & Chem 7: 07/01/18 17:13 07/02/18 05:23 - ABG Interpretation ABG results: PT/INR, D-dimer PT 11.4 Seconds (9.4-12.1) 07/02/18 05:23 D-Dimer 639 ng/mLFEU (0-500) H 07/02/18 14:17 Consult Discharge Plan - Plan Referrals: Stanford Valero [Primary Care Provider] - (1) Cerebrovascular accident Qualifiers: CVA mechanism: unspecified Qualified Code(s): I63.9 - Cerebral infarction, unspecified (2) Chest pain Qualifiers: Ischemic chest pain type: unspecified angina pectoris type Qualified Code(s) : I25.9 - Chronic ischemic heart disease, unspecified (3) Asthma Qualifiers: Asthma complication type: unspecified Qualified Code(s): J45.909 - Unspecified asthma, uncomplicated (4) COPD (chronic obstructive pulmonary disease) Qualifiers: Emphysema type: unspecified Qualified Code(s): J43.9 - Emphysema, unspecified (5) Hypertension Qualifiers: Hypertension type: unspecified Qualified Code(s): I10 - Essential (primary) hypertension (6) Hyperlipidemia Qualifiers: Hyperlipidemia type: unspecified Qualified Code(s): E78.5 - Hyperlipidemia, unspecified (7) Diabetes type 2, controlled Qualifiers: 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
[2018-07-03] MEDS: valACYclovir 500 MG TABLET PO SCH ×2 (08:17→15:08)
[2018-07-03] MEDS ORDERED: Metoprolol XL (24 HR) Succ 50 MG TAB.ER.24H PO SCH (09:00)
[2018-07-03] MEDS ORDERED: Isovue-370 500 ML INFUS..BTL IV ONE (09:15)
--- NOTE | 2018-07-03 09:21 | Neurology Progress Note ---
Date of Encounter: 07/03/18 Time of Encounter: 09:19 Assessment and Plan (1) Felix's palsy Current Visit: Yes Status: Acute Symptoms and signs are consistent with Felix's palsy. Started steroid and antiviral therapy. Patient completed stroke work up due to her age and multiple risk factors but this turns out to be Felix' palsy. Continue steroid and antiviral therapy, eye care with drops and eye patch during sleep. Prognosis of such Felix's palsy discussed with the patient. Patient can be discharged home from neurology perspective. Will sign off please call if any questions Subjective Principal diagnosis: Felix's palsy Interval history: Patient seen and examined. She is feeling fine. Started her on Steroid therapy she feels hyper and has difficulty sleeping. Other than that she feels 'great'. MRi of brain without contrast showed no acute intracranial abnormality. She was started steroid and antiviral therapy. Objective - Constitutional Vitals: Temp Pulse Resp BP Pulse Ox 98.3 F 64 16 170/88 96 07/03/18 07:39 07/03/18 07:39 07/03/18 07:39 07/03/18 07:39 07/03/18 07:39 - Neurological Exam Sensorimotor examination: Present: intact Motor Examination: Present: full strength in all major muscle groups Motor examination - right side: 5/5: deltoids, biceps, triceps, wrist flexion, wrist extension, financial systems administrator, hip flexors, tibialis Anterior, quadriceps, toe extension (EHL), plantarflexion Motor examination - left side: 5/5: deltoids, biceps, triceps, wrist flexion, wrist extension, hip flexors, financial systems administrator, quadriceps, tibialis Anterior, toe extension (EHL), plantarflexion Sensation intact: Present: intact Posture: Present: other (None) Reflexes: Biceps: 1+, Triceps: 1+, Brachioradialis: 1+, Patella: 1+, Achilles: 1 + Mental Status Examination: Present: awake, alert, oriented to person, oriented to place, oriented to time, follows commands appropriately, answers questions appropriately, no agnosia, no aphasia, no aproxia Cranial nerve examination: Present: PERRL, EOMI, visual beckwith intact, corneal reflexes brisk symmetrically, sensory to face intact, mastication intact, no facial asymmetry is present (right facial paralysis noted, positive Lawai phenomenon), no dysarthria (Slight dysarthria noted. Language content is intact) , hearing is intact symmetrically, soft palate elevates bilaterally upon phonation, gag reflex intact, flexes SCM and trapezius muscles symmetrically with full power, tongue protrudes midline (To the left side but this could be masked by right facial droop), no atrophy or facial fasiculations present Results - Laboratory Findings CBC and BMP: 07/01/18 17:13 07/02/18 05:23 Abnormal lab findings: Abnormal lab results D-Dimer 639 ng/mLFEU (0-500) H 07/02/18 14:17 Chloride 108 mEq/L (98-107) H 07/02/18 05:23 Glucose 110 mg/dL (70-105) H 07/02/18 05:23 POC Glucose 232 mg/dL (70-99) H 07/02/18 21:00 Hemoglobin A1c 6.4 % (-5.6) H 07/02/18 05:23 Serum Total Protein 6.3 g/dL (6.4-8.9) L 07/02/18 05:23 Triglycerides 232 mg/dL (< 150) H 07/02/18 05:23 LDL Cholesterol [place] 61 mg/dL (75-193) L 07/02/18 05:23 VLDL Cholesterol, Calc 46 mg/dL (< 31) H 07/02/18 05:23 HDL Cholesterol 38 mg/dL (40-59) L 07/02/18 05:23 Ur Specific [place] > 1.030 (1.010-1.025) H 07/01/18 20:30 Urine Blood Trace (Negative) H 07/01/18 20:30 Ur Leukocyte Esterase Small (Negative) H 07/01/18 20:30 Urine Microscopic WBC 3-5 per hpf (0-3) H 07/01/18 20:30 - Diagnostic Findings Additional findings: EV/EV echocardiogram Impressions: LVEF 60%. Moderate concentric left ventricular hypertrophy. Moderate left ventricular diastolic dysfunction. Normal right ventricular structure and function. No evidence of PFO with agitated saline contrast. Trace mitral regurgitation. MRI OF THE BRAIN WITHOUT CONTRAST 07/02/2018 7:16 pm TECHNIQUE: Multiplanar multisequence MRI of the brain was performed without the administration of intravenous contrast. COMPARISON: None. HISTORY: ORDERING SYSTEM PROVIDED HISTORY: Stroke workup FINDINGS: INTRACRANIAL STRUCTURES/VENTRICLES: There is no acute infarct, hemorrhage, herniation, or hydrocephalus. There is no mass. There is generalized brain parenchymal volume loss. Areas of white matter T2 hyperintensity are nonspecific but commonly attributed to chronic microvascular ischemia. ORBITS: The visualized portion of the orbits demonstrate no acute abnormality. SINUSES: The visualized paranasal sinuses and mastoid air cells are well aerated. BONES/SOFT TISSUES: The bone marrow signal intensity appears normal. The soft tissues demonstrate no acute abnormality. MR/MR head/brain wo con IMPRESSION: No acute intracranial abnormality. D/ / Brent Judge MD / Brent Judge MD Interpreting Provider: Brent Judge MD Consult Discharge Plan - Plan Referrals: Stanford Valero [Primary Care Provider] -
--- NOTE | 2018-07-03 15:50 | Discharge Summary ---
Date of Encounter: 07/03/18 Time of Encounter: 16:00 - Discharge Diagnosis (1) Felix's palsy Priority: Secondary Status: Acute (2) Facial droop Priority: Primary Status: Acute (3) Chest pain Priority: Secondary Status: Resolved Qualifiers: Ischemic chest pain type: unspecified angina pectoris type Qualified Code(s ): I25.9 - Chronic ischemic heart disease, unspecified (4) Asthma Priority: Secondary Status: Acute Qualifiers: Asthma complication type: unspecified Qualified Code(s): J45.909 - Unspecified asthma, uncomplicated (5) COPD (chronic obstructive pulmonary disease) Priority: Secondary Status: Acute Qualifiers: Emphysema type: unspecified Qualified Code(s): J43.9 - Emphysema, unspecified (6) Hypertension Priority: Secondary Status: Acute Qualifiers: Hypertension type: unspecified Qualified Code(s): I10 - Essential (primary ) hypertension (7) Hyperlipidemia Priority: Secondary Status: Acute Qualifiers: Hyperlipidemia type: unspecified Qualified Code(s): E78.5 - Hyperlipidemia , unspecified (8) Diabetes type 2, controlled Priority: Secondary Status: Acute Qualifiers: Diabetes mellitus termite technician insulin use: unspecified usp insulin use status Diabetes mellitus complication status: with unspecified complications Qualified Code(s): E11.8 - Type 2 diabetes mellitus with unspecified complications Hospital course: Ms. Agrawal is a 72 year old female with a past medical history of TIA, Diabetes , HTN, HLD, asthma and COPD who presents with a chief complaint of right facial droop, dyspnea and malaise. Patient reports that symptoms started around noon, 5 hours prior to arrival. However patient states she has not been feeling well for the past 8 hours. She reports that her brother came to see her earlier today around 1 PM and noticed that her right side of her face was drooping. Up until that point patient did not note it but was having difficulty drinking fluids the prior day. On arrival patient noted to be short of breath with notable right facial droop and tongue deviation to the left. Patient was also noted to be ataxic on ambulation with decreased sensation of the upper extremities. Patient currently on Plavix for previous history of TIA. However , patient believes that she may not have been taking it for an entire month but is uncertain. Additionally, patient endorses some left-sided chest pain which she describes as sharp, nonpleuritic radiating to her left arm. Initial EKG and troponins were unremarkable. Stroke alert was called and the case was discussed with Dr. Angela with neurology at [facility] over recommended further workup including MRI. Patient received loading dose of aspirin. CT scan of the head showed no evidence of high-grade stenosis. EKG unremarkable. Neurology was consulted. Patient had MRI of head that was negative for acute CVA. After Neurological exam, this presentation seemed more consistent with Felix's Palsy. She was started on antiviral and steroid therapy. Patient has some what improvement of symptoms. In regards to dyspnea, a CTA was done and PE was ruled out. Troponin was negative then 0.04 and then negative again. Chest pain was reproduced with tenderness of chest would could suggest musculoskelatal etiology. EKG was unremarkable. Will defer to primary care physician if cardiac stress test as outpatient is needed or not. - Time Spent with Patient Total time spent providing and/or coordinating discharge services: - Discharge Medications Prescriptions: predniSONE [PredniSONE] 60 mg PO DAILY #12 tablet Home Medications: Loratadine [Claritin] 10 mg PO DAILY #30 tablet 02/19/16 [Rx] ALPRAZolam [Xanax 0.5 MG Tablet] 0.5 mg PO TID PRN 07/01/18 [History] Budesonide/Formoterol 160/4.5 [Symbicort 160/4.5] 2 puff IH BIDR 07/01/18 [ History] Cetirizine HCl [All Day Allergy] 10 mg PO DAILY 07/01/18 [History] Citalopram [CeleXA] 20 mg PO BID 07/01/18 [History] Fluticasone Propionate Nasal [Flonase] 50 mcg NS DAILY 07/01/18 [History] Hyoscyamine SL [Levsin Sl] 0.125 mg SL TID 07/01/18 [History] L. Acidophilus/Pectin, [place] [Acidophilus Probiotic Capsule] 1 each PO DAILY [History] Lansoprazole [Prevacid] 30 mg PO DAILY 07/01/18 [History] Levothyroxine Sodium [Levoxyl] 25 mcg PO DAILY 07/01/18 [History] Montelukast [Singulair] 10 mg PO HS 07/01/18 [History] Oxycodone HCl/Acetaminophen [Percocet 7.5-325 mg Tablet] 1 each PO BID PRN 07/01 [History] Paroxetine HCl [Paxil] 20 mg PO DAILY 07/01/18 [History] Trazodone HCl 150 mg PO HS 07/01/18 [History] Clopidogrel [Plavix] 75 mg PO DAILY 07/02/18 [History] Metoprolol XL (24 HR) Succ [Toprol Xl] 50 mg PO DAILY 07/02/18 [History] Simvastatin [Zocor] 20 mg PO HS 07/02/18 [History] glipiZIDE [Glipizide] 10 mg PO BID 07/02/18 [History] metFORMIN [Glucophage] 500 mg PO BIDWM 07/02/18 [History] Gabapentin [Neurontin] 600 mg PO TID #0 07/03/18 [Rx] Valacyclovir HCl [Valtrex] 1,000 mg PO TID #12 tab 07/03/18 [Rx] predniSONE [PredniSONE] 60 mg PO DAILY #12 tablet 07/03/18 [Rx] Allergies/Adverse Reactions: 3 Allergy/AdvReac Type Severity Reaction Status Date / Time bupropion [From Wellbutrin] Allergy Dizziness Verified 07/01/18 18:16 hydrocodone Allergy Rash Verified 07/01/18 18:16 meperidine Allergy Rash Verified 07/01/18 18:16 morphine Allergy Abdominal Verified 05/19/15 18:37 Pain propoxyphene Allergy Hives Verified 05/19/15 18:37 [From Darvocet-N] Sulfa (Sulfonamide Allergy Hives Verified 05/19/15 18:37 Antibiotics) acetaminophen [From Vicodin] AdvReac Vomiting Verified 07/01/18 18:16 cephalexin AdvReac Gastrointestinal Verified 07/01/18 18:16 Upset Date of admission: 07/01/18 19:23 Primary care physician: Stanford Valero Discharging clinician: Conner Pollard - Constitutional Vitals: Temp Pulse Resp BP Pulse Ox 98.3 F 64 16 170/88 91 07/03/18 07:39 07/03/18 07:39 07/03/18 07:39 07/03/18 07:39 07/03/18 07:46 Exam: General: Alert and oriented 3, no acute distress Skin:Normal color, warm, dry, no rash/lesions HEENT:EOM, pupils equal, round and reactive. Cardiovascular:Normal S1 & S2, no rubs, murmurs or gallops. No JVD. Pulse regular. Lungs:Normal breath sounds, no wheezes or crackles. Abdomen:Soft, non-tender, no rigidity. Extremities: No edema Neurological:Normal cognition; + right sided facial droop; cranial nerves II through XII intact except for tongue deviation to the left; upper and lower sensation intact; no pronator drift. Upper and lower extremity muscle strength 5 out of 5 bilaterally. No dysmetria. Pulses:Carotid and radial pulses normal +2. Rest of the physical exam is non contributory - Patient Status Disposition: Home, Self-Care Condition: Undetermined Functional capacity at discharge: independent ambulation Overall status at discharge: patient is not back to baseline - Discharge Instructions Follow Up With: Stanford Valero [Primary Care Provider] - 07/10/18 3:00 pm - Diet and Activity Activity: return to work once cleared by your PCP/specialist Diet: advance to your usual diet
== END 2018-07-03 16:44 | disposition home or self-care (01) | DRG 74 ==
LOC: EMEROOARM 17:09 → 2NENU 17:09 → SUATTDRO 19:23 → 2NENU 19:58
PROVIDERS: ADMIT Internal Medicine; ATTEND Student in an Organized Health Care Education/Training Program

== ENCOUNTER 2020-05-26 14:13 | Observation (INO) ==
[2020-05-26 14:42] LABS: Basophils % 0.3 %; Eosinophils % 0.6 %; Hematocrit 38.6 % (35.3-44.9); Hemoglobin 12.3 g/dL (11.5-15.4); Immature Granulocytes % 0.1 % (0-4); Lymphocytes # 2.1 K/mcL (0.6-4.6); Lymphocytes % 29.5 %; Mean Corpuscular HGB Conc 31.9 g/dL (31.6-35.5); Mean Corpuscular Hemoglobin 27.7 pg (28.0-33.3); Mean Corpuscular Volume 86.9 fL (83.0-100.0); Mean Platelet Volume 10.1 fL (9.4-12.4); Monocytes # 0.6 K/mcL (0.0-1.3); Monocytes % 8.5 %; Neutrophils # 4.2 K/mcL (1.6-8.9); Platelet Count 180 K/mcL (140-400); Red Blood Count 4.44 M/mcL (3.82-4.97); Red Cell Distribution Width 13.6 % (11.5-14.5)
[2020-05-26 15:07] LABS: BUN/Creatinine Ratio 13 (6-26); Blood Urea Nitrogen 14 mg/dL (8-23); Calcium 9.7 mg/dL (8.6-10.3); Carbon Dioxide 25 mEq/L (23-29); Chloride 102 mEq/L (98-107); Glucose 148 mg/dL (70-105); Osmolality,Calculated 285 (280-300); Potassium 4.1 mEq/L (3.5-5.1); Sodium 136 mEq/L (136-145); eGFR For African Americans > 60 (> 60); eGFR For Non-African Americans 52 (> 60)
[2020-05-26] MEDS ORDERED: Isovue-370 500 ML BOTTLE IVP ONE (15:07)
[2020-05-26] MEDS ORDERED: Aspirin 81 MG TAB.CHEW PO STA (15:30)
[2020-05-26] MEDS ORDERED: *HR* HYDROcodone/Acet 5/325 mg TABLET PO PRN (15:59)
[2020-05-26] MEDS ORDERED: Naloxone 0.4 MG/ML INJ IVP PRN (15:59)
[2020-05-26] MEDS ORDERED: Perflutren Lipid Microsphere 1.3 ML in 0.9 % Sodium Chloride 8.7 ML IVP PRN (16:02)
[2020-05-26] MEDS ORDERED: *HR* Labetalol 20 MG/4 ML SYRINGE IVP PRN (16:03)
[2020-05-26] MEDS ORDERED: *HR* Dextrose 50 % in Water (Vial) 50 ML VIAL IVP PRN (16:05)
[2020-05-26] MEDS ORDERED: Dextrose Gel 15 GM/37.5 ML TUBE PO PRN ×2 (16:05)
[2020-05-26] MEDS ORDERED: D5% in Water 1,000 ML IVC PRN (16:05)
[2020-05-26] MEDS ORDERED: QUEtiapine Fumarate 25 MG TABLET PO PRN (16:08)
[2020-05-26] MEDS ORDERED: SUMAtriptan succinate 50 MG TABLET PO PRN (16:08)
[2020-05-26 17:33] LABS: Bilirubin,Urine Negative (Negative); Blood,Urine Negative (Negative); Clarity,Urine Clear (Clear); Color,Urine Light-Yellow (Yellow); Glucose,Urine (UA) Normal (Normal); Ketones,Urine Negative (Negative); Leukocyte Esterase,Urine Negative (Negative); Mucus,Urine Few per lpf (None-Few); Nitrite,Urine Negative (Negative); PH,Urine 7.5 pH Units (5.0-8.0); Protein,Urine 70 mg/dL (Neg-Trace); Specific Gravity,Urine > 1.030 (1.010-1.025); Squamous Epithelial Cell,Urine Few per hpf (None-Few); Urobilinogen,Urine Normal (Normal); WBC,Urine 0-3 per hpf (0-3)
[2020-05-26] MEDS: Insulin LISPRO 300 UNITS/3 ML VIAL SQ SCH (18:08)
[2020-05-26 18:14] LABS: Troponin I < 0.03 ng/mL (< 0.04)
[2020-05-26] MEDS: traZODone 50 MG TABLET PO SCH (21:24)
[2020-05-26] MEDS: Gabapentin 300 MG CAPSULE PO SCH (21:24)
[2020-05-26] MEDS: *HR* Heparin 5,000 UNIT/ML VIAL SQ SCH (21:24)
[2020-05-27] MEDS: *HR* OxyCODONE/APAP 5/325 TABLET PO PRN ×2 (01:08→21:40)
[2020-05-27] MEDS: *HR* Heparin 5,000 UNIT/ML VIAL SQ SCH ×3 (05:33→21:40)
[2020-05-27 06:02] LABS: Activated Partial Thrombo Time 36.2 Seconds (26.0-36.0)
[2020-05-27 06:03] LABS: Basophils % 0.2 %; Eosinophils # 0.1 K/mcL (0.0-0.6); Eosinophils % 1.7 %; Hematocrit 33.8 % (35.3-44.9); INR 1.1; Immature Granulocytes % 0.2 % (0-4); Lymphocytes # 2.8 K/mcL (0.6-4.6); Lymphocytes % 46.9 %; Mean Corpuscular HGB Conc 31.7 g/dL (31.6-35.5); Mean Corpuscular Hemoglobin 28.1 pg (28.0-33.3); Mean Corpuscular Volume 88.7 fL (83.0-100.0); Mean Platelet Volume 10.8 fL (9.4-12.4); Monocytes # 0.6 K/mcL (0.0-1.3); Monocytes % 9.4 %; Neutrophils # 2.5 K/mcL (1.6-8.9); Platelet Count 134 K/mcL (140-400); Prothrombin Time 12.6 Seconds (9.4-12.1); Red Blood Count 3.81 M/mcL (3.82-4.97); Red Cell Distribution Width 13.7 % (11.5-14.5); Segmented Neutrophils % 41.6 %; White Blood Count 6.1 K/mcL (4.3-11.1)
[2020-05-27 06:09] LABS: Hemoglobin 10.7 g/dL (11.5-15.4)
[2020-05-27 06:14] LABS: Albumin 3.7 g/dL (3.5-5.7); Albumin/Globulin Ratio 1.7 (1.1-2.2); Bilirubin,Total 0.4 mg/dL (0.3-1.0); Calcium 8.6 mg/dL (8.6-10.3); Chol/HDL Ratio 3.2 (0-4.9); Globulin 2.2 g/dL (2.4-3.5); Magnesium 1.6 mg/dL (1.6-2.6); Potassium 3.4 mEq/L (3.5-5.1); Total Protein 5.9 g/dL (6.4-8.9)
[2020-05-27] MEDS: Insulin LISPRO 300 UNITS/3 ML VIAL SQ SCH ×3 (08:02→18:27)
[2020-05-27] MEDS: FLUoxetine HCl 10 MG CAPSULE PO SCH (08:03)
[2020-05-27] MEDS: Gabapentin 300 MG CAPSULE PO SCH (08:03)
[2020-05-27] MEDS ORDERED: Aspirin Enteric Coated 81 MG Tablet PO SCH (09:00)
[2020-05-27] MEDS ORDERED: Ringers Solution, Lactated 500 ML IVC SCH (11:00)
[2020-05-27] MEDS: Budesonide/Formoterol 160/4.5 1 PUFF INH IH SCH ×2 (11:50→19:33)
[2020-05-27] MEDS: Tiotropium 18 MCG inhalation IH SCH (11:50)
[2020-05-27] MEDS: traZODone 50 MG TABLET PO SCH (21:40)
[2020-05-28 04:06] LABS: Hematocrit 33.3 % (35.3-44.9); Hemoglobin 10.6 g/dL (11.5-15.4); Mean Corpuscular HGB Conc 31.8 g/dL (31.6-35.5); Mean Corpuscular Hemoglobin 28.2 pg (28.0-33.3); Mean Corpuscular Volume 88.6 fL (83.0-100.0); Mean Platelet Volume 10.8 fL (9.4-12.4); Platelet Count 115 K/mcL (140-400); Red Blood Count 3.76 M/mcL (3.82-4.97); Red Cell Distribution Width 13.4 % (11.5-14.5); White Blood Count 4.7 K/mcL (4.3-11.1)
[2020-05-28 04:35] LABS: BUN/Creatinine Ratio 14 (6-26); Blood Urea Nitrogen 14 mg/dL (8-23); Calcium 8.7 mg/dL (8.6-10.3); Carbon Dioxide 22 mEq/L (23-29); Chloride 109 mEq/L (98-107); Glucose 149 mg/dL (70-105); Osmolality,Calculated 295 (280-300); Potassium 3.9 mEq/L (3.5-5.1); Sodium 141 mEq/L (136-145); eGFR For African Americans > 60 (> 60); eGFR For Non-African Americans 55 (> 60)
[2020-05-28] MEDS: *HR* Heparin 5,000 UNIT/ML VIAL SQ SCH (05:57)
[2020-05-28] MEDS: Tiotropium 18 MCG inhalation IH SCH (08:06)
[2020-05-28] MEDS: Budesonide/Formoterol 160/4.5 1 PUFF INH IH SCH (08:07)
[2020-05-28] MEDS: Insulin LISPRO 300 UNITS/3 ML VIAL SQ SCH ×2 (08:44→12:37)
[2020-05-28] MEDS: FLUoxetine HCl 10 MG CAPSULE PO SCH (08:45)
[2020-05-28] MEDS ORDERED: Aspirin 81 MG TAB.CHEW PO SCH (09:00)
[2020-05-28 11:36] VITALS: BP 135/43
== END 2020-05-28 13:36 | disposition home or self-care (01) ==
LOC: EMEROOARM 14:13 → 2NENU 14:13
PROVIDERS: ADMIT Internal Medicine; ATTEND Internal Medicine

== ENCOUNTER 2022-06-27 19:48 | Inpatient (IN) ==
[2022-06-27 21:09] LABS: Basophils # 0.1 K/mcL (0.0-0.2); Basophils % 0.5 %; Eosinophils # 0.2 K/mcL (0.0-0.6); Eosinophils % 1.7 %; Hematocrit 38.2 % (35.3-44.9); Immature Granulocytes % 0.7 % (0-4); Lymphocytes # 2.7 K/mcL (0.6-4.6); Lymphocytes % 19.9 %; Mean Corpuscular HGB Conc 31.4 g/dL (31.6-35.5); Mean Corpuscular Hemoglobin 27.8 pg (28.0-33.3); Mean Corpuscular Volume 88.6 fL (83.0-100.0); Mean Platelet Volume 10.2 fL (9.4-12.4); Monocytes % 7.4 %; Neutrophils # 9.6 K/mcL (1.6-8.9); Platelet Count 259 K/mcL (140-400); Red Blood Count 4.31 M/mcL (3.82-4.97); Red Cell Distribution Width 13.6 % (11.5-14.5); Segmented Neutrophils % 69.8 %; White Blood Count 13.7 K/mcL (4.3-11.1)
[2022-06-27 21:28] LABS: BUN/Creatinine Ratio 21 (6-26); Blood Urea Nitrogen 23 mg/dL (8-23); Calcium 10.4 mg/dL (8.6-10.3); Carbon Dioxide 27 mEq/L (23-29); Chloride 98 mEq/L (98-107); Glucose 165 mg/dL (70-105); Osmolality,Calculated 285 (280-300); Potassium 4.7 mEq/L (3.5-5.1); Sodium 134 mEq/L (136-145)
[2022-06-27 21:29] LABS: Troponin I < 0.03 ng/mL (< 0.04)
[2022-06-27] MEDS ORDERED: Piperacillin/Tazobactam 3.375 GM in 0.9 % Sodium Chloride Mini Bag 100 ML IVPB ONE (22:00)
[2022-06-27] MEDS: 0.9 % Sodium Chloride 1,000 ML IVC SCH (22:39)
[2022-06-27 22:43] LABS: C-Reactive Protein 22 mg/L (Less than 10)
[2022-06-27] MEDS ORDERED: Iopamidol - 370 500 ML MLS IVP ONE (23:27)
[2022-06-28 00:05] LABS: Bilirubin,Urine Negative (Negative); Blood,Urine Trace (Negative); Clarity,Urine Clear (Clear); Color,Urine Yellow (Yellow); Glucose,Urine (UA) Normal (Normal); Ketones,Urine Negative (Negative); Leukocyte Esterase,Urine Small (Negative); Mucus,Urine Few per lpf (None-Few); Nitrite,Urine Negative (Negative); Protein,Urine 200 mg/dL (Neg-Trace); Specific Gravity,Urine 1.029 (1.010-1.025); Squamous Epithelial Cell,Urine Moderate per hpf (None-Few); Transitional Epi Cells,Urine Few per hpf (None-Few); Urobilinogen,Urine Normal (Normal)
[2022-06-28] MEDS: 0.9 % Sodium Chloride 1,000 ML IVC SCH (00:58)
[2022-06-28] MEDS ORDERED: Ondansetron 4 MG/2 ML VIAL IVP ONE ×2 (02:11→13:55)
[2022-06-28] MEDS ORDERED: *HR* FentaNYL (PF) 100 MCG/2 ML VIAL IVP ONE ×2 (02:12→13:55)
[2022-06-28] MEDS ORDERED: Acetaminophen 325 MG TABLET PO PRN ×2 (02:41→13:55)
[2022-06-28] MEDS ORDERED: Naloxone 0.4 MG/ML INJ IVP PRN ×2 (02:41→13:55)
[2022-06-28] MEDS ORDERED: Ondansetron 4 MG/2 ML VIAL IVP PRN ×2 (02:41→13:55)
[2022-06-28] MEDS ORDERED: 0.9 % Sodium Chloride 1,000 ML IVC SCH ×2 (02:45→13:55)
[2022-06-28] MEDS ORDERED: Vancomycin 1,500 MG/265 ML IV.SOLN IVPB ONE (03:00)
[2022-06-28] MEDS ORDERED: *HR* OxyCODONE/APAP 7.5/325 TABLET PO PRN (03:25)
[2022-06-28] MEDS ORDERED: Dextrose Gel 15 GM/37.5 ML TUBE PO PRN ×4 (03:38→13:55)
[2022-06-28] MEDS ORDERED: *HR* Dextrose 50 % in Water (Syg) 50 ML SYRINGE IVP PRN ×2 (03:38→13:55)
[2022-06-28] MEDS ORDERED: D5% in Water 1,000 ML IVC PRN ×2 (03:38→13:55)
[2022-06-28 03:42] LABS: Influenza A PCR Negative (Negative); Influenza B PCR Negative (Negative); Resp. Syncytial Virus PCR Negative (Negative)
[2022-06-28 03:43] LABS: SARS-CoV-2 by PCR (In House) Negative (Negative)
[2022-06-28] MEDS ORDERED: SUMAtriptan succinate 25 MG TABLET PO PRN ×2 (03:55→13:55)
[2022-06-28 05:12] LABS: Hematocrit 32.6 % (35.3-44.9); Hemoglobin 10.5 g/dL (11.5-15.4); Mean Corpuscular HGB Conc 32.2 g/dL (31.6-35.5); Mean Corpuscular Volume 86.9 fL (83.0-100.0); Mean Platelet Volume 10.2 fL (9.4-12.4); Platelet Count 207 K/mcL (140-400); Red Blood Count 3.75 M/mcL (3.82-4.97); Red Cell Distribution Width 13.8 % (11.5-14.5); White Blood Count 10.4 K/mcL (4.3-11.1)
[2022-06-28 05:16] LABS: Estimated Average Glucose 148 mg/dl; Hemoglobin A1C 6.8 %
[2022-06-28 05:34] LABS: Calcium 9.2 mg/dL (8.6-10.3); Chol/HDL Ratio 2.8 (0-4.9); Potassium 3.9 mEq/L (3.5-5.1)
[2022-06-28] MEDS ORDERED: Famotidine 20 MG/2 ML VIAL IVP ONE (05:34)
[2022-06-28] MEDS: Insulin LISPRO 300 UNITS/3 ML VIAL SUBQ SCH ×3 (05:51→18:47)
[2022-06-28] MEDS ORDERED: Piperacillin/Tazobactam 3.375 GM in 0.9 % Sodium Chloride Mini Bag 100 ML IVPB SCH ×2 (08:00→16:00)
[2022-06-28] MEDS ORDERED: Aspirin Enteric Coated 81 MG Tablet PO SCH (09:00)
[2022-06-28] MEDS ORDERED: Lactobacillus 1 EACH CAP.SPRINK PO SCH (09:00)
[2022-06-28] MEDS ORDERED: Gabapentin 300 MG CAPSULE PO SCH (09:00)
[2022-06-28] MEDS ORDERED: Lidocaine -MPF 1% 5 ML AMPUL ONE (11:55)
[2022-06-28] MEDS ORDERED: tiZANidine 4 MG TABLET PO PRN ×2 (11:59→13:55)
[2022-06-28] MEDS ORDERED: Artificial Tears SOLN 15 ML BOTTLE BOTH EYES PRN ×2 (11:59→13:55)
[2022-06-28] MEDS ORDERED: Sennosides/Docusate Sodium TABLET PO PRN ×2 (11:59→13:55)
[2022-06-28] MEDS ORDERED: *HR* FentaNYL (PF) 100 MCG/2 ML VIAL ONE (12:18)
[2022-06-28] MEDS ORDERED: Lidocaine -MPF 2% 2 ML VIAL ONE (12:18)
[2022-06-28] MEDS ORDERED: methylPREDNISolone 125 MG/2 ML VIAL IVP ONE (18:53)
[2022-06-28] MEDS ORDERED: Mirtazapine 15 MG TABLET PO SCH (21:00)
[2022-06-28] MEDS ORDERED: traZODone 50 MG TABLET PO SCH (21:00)
[2022-06-28] MEDS: Mirtazapine 15 MG TABLET PO SCH (21:33)
[2022-06-28] MEDS: *HR* OxyCODONE/APAP 7.5/325 TABLET PO PRN (21:34)
[2022-06-28] MEDS: traZODone 50 MG TABLET PO SCH (21:55)
[2022-06-29] MEDS: Insulin LISPRO 300 UNITS/3 ML VIAL SUBQ SCH ×4 (01:38→18:27)
[2022-06-29] MEDS ORDERED: Vancomycin 1,250 MG/262.5 ML IV.SOLN IVPB SCH (04:00)
[2022-06-29] MEDS: Vancomycin 1,250 MG/262.5 ML IV.SOLN IVPB SCH (05:30)
[2022-06-29] MEDS: MetroNIDAZOLE 500 MG/100 ML 500 MG/100 ML BAG IVPB SCH ×3 (05:35→18:25)
[2022-06-29 07:12] LABS: A.calcoaceticus-baumannii cplx Not Detected (Not Detect); Bacteroides fragilis by PCR Not Detected (Not Detect); Candida albicans by PCR Not Detected (Not Detect); Candida auris by PCR Not Detected (Not Detect); Candida glabrata by PCR Not Detected (Not Detect); Candida krusei by PCR Not Detected (Not Detect); Candida parapsilosis by PCR Not Detected (Not Detect); Candida tropicalis by PCR Not Detected (Not Detect); Crypto. neoformans/gattii PCR Not Detected (Not Detect); Enterobacter cloacae Cmplx PCR Not Detected (Not Detect); Enterobacterales by PCR Not Detected (Not Detect); Enterococcus faecalis by PCR Not Detected (Not Detect); Enterococcus faecium by PCR Not Detected (Not Detect); Escherichia coli by PCR Not Detected (Not Detect); Klebs. pneumoniae group by PCR Not Detected (Not Detect); Klebsiella aerogenes by PCR Not Detected (Not Detect); Klebsiella oxytoca by PCR Not Detected (Not Detect); Proteus by PCR Not Detected (Not Detect); Pseudomonas aeruginosa by PCR Not Detected (Not Detect); Salmonella species by PCR Not Detected (Not Detect); Serratia marcescens by PCR Not Detected (Not Detect); Staph epidermidis by PCR Not Detected (Not Detect); Staph lugdunensis by PCR Not Detected (Not Detect); Staphylococcus aureus by PCR Not Detected (Not Detect); Staphylococcus by PCR DETECTED (Not Detect); Stenotrophomonas maltophilia Not Detected (Not Detect); Streptococcus agalactiae(B)PCR Not Detected (Not Detect); Streptococcus by PCR Not Detected (Not Detect); Streptococcus pneumoniae PCR Not Detected (Not Detect); Streptococcus pyogenes (A) PCR Not Detected (Not Detect)
[2022-06-29] MEDS: Aspirin Enteric Coated 81 MG Tablet PO SCH (08:16)
[2022-06-29] MEDS: Lactobacillus 1 EACH CAP.SPRINK PO SCH (08:17)
[2022-06-29] MEDS: Cefepime HCl 2,000 MG in 0.9 % Sodium Chloride 10 ML IVP SCH ×2 (08:17→19:33)
[2022-06-29] MEDS: traZODone 50 MG TABLET PO SCH (21:30)
[2022-06-29] MEDS: Insulin DETEMIR 100 UNIT/ML X5UNITS SUBQ SCH (21:30)
[2022-06-29] MEDS: Mirtazapine 15 MG TABLET PO SCH (21:30)
[2022-06-30] MEDS: MetroNIDAZOLE 500 MG/100 ML 500 MG/100 ML BAG IVPB SCH ×3 (00:23→11:21)
[2022-06-30] MEDS: *HR* OxyCODONE/APAP 7.5/325 TABLET PO PRN (00:24)
[2022-06-30] MEDS: Insulin LISPRO 300 UNITS/3 ML VIAL SUBQ SCH ×3 (00:24→12:24)
[2022-06-30 06:01] LABS: Basophils % 0.4 %; Eosinophils # 0.1 K/mcL (0.0-0.6); Eosinophils % 1.3 %; Hematocrit 30.5 % (35.3-44.9); Hemoglobin 9.8 g/dL (11.5-15.4); Immature Granulocytes % 0.5 % (0-4); Lymphocytes # 3.2 K/mcL (0.6-4.6); Lymphocytes % 31.3 %; Mean Corpuscular HGB Conc 32.1 g/dL (31.6-35.5); Mean Corpuscular Hemoglobin 28.2 pg (28.0-33.3); Mean Corpuscular Volume 87.9 fL (83.0-100.0); Mean Platelet Volume 10.8 fL (9.4-12.4); Monocytes # 0.7 K/mcL (0.0-1.3); Monocytes % 6.3 %; Neutrophils # 6.2 K/mcL (1.6-8.9); Platelet Count 181 K/mcL (140-400); Red Blood Count 3.47 M/mcL (3.82-4.97); Segmented Neutrophils % 60.2 %; White Blood Count 10.2 K/mcL (4.3-11.1)
[2022-06-30 06:17] LABS: Calcium 9.1 mg/dL (8.6-10.3); Magnesium 1.6 mg/dL (1.6-2.6); Phosphorous 3.3 mg/dL (2.7-4.5); Potassium 4.2 mEq/L (3.5-5.1)
[2022-06-30] MEDS: Vancomycin 1,250 MG/262.5 ML IV.SOLN IVPB SCH (06:28)
[2022-06-30 07:34] VITALS: TEMP 98.4
[2022-06-30] MEDS: Aspirin Enteric Coated 81 MG Tablet PO SCH (08:07)
[2022-06-30] MEDS: Lactobacillus 1 EACH CAP.SPRINK PO SCH (08:08)
[2022-06-30] MEDS: Cefepime HCl 2,000 MG in 0.9 % Sodium Chloride 10 ML IVP SCH (08:08)
[2022-06-30] MEDS: Insulin DETEMIR 100 UNIT/ML X5UNITS SUBQ SCH (08:12)
[2022-06-30 11:33] VITALS: BP 133/63; PULSE 72; O2SAT 93
[2022-07-01] MEDS ORDERED: Vancomycin 1,500 MG/265 ML IV.SOLN IVPB SCH (06:00)
== END 2022-06-30 14:19 | disposition home health service (06) | DRG 857 ==
LOC: 4WAOSI 19:48 → EMEROOARM 19:48 → SUATTDRO 06-28 01:56 → 4WAOSI 06-28 02:44
PROVIDERS: ADMIT Internal Medicine; ATTEND Internal Medicine